=== PATIENT | female | born 1990 | race Caucasian/White ===

== ENCOUNTER 2017-03-21 20:38 | Emergency (ER) | payer BC, OTHER ==
[~2017-03-21] VITALS: Ht 160 cm; Wt 74.8 kg
[2017-03-21] MEDS ORDERED: SIMVASTATIN (21:57)
[2017-03-21] MEDS ORDERED: NORG1TAB14 PO (21:57)
--- NOTE | 2017-03-21 23:00 | ED EENT ---
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 ALSO C/O SOB, OCCASIONAL COUGH ET ALVARADO. NO OTHER C/O VOICED Source: patient, family, spouse Exam Limitations: no limitations History of Present Illness Time seen by provider: 22:50 Initial Comments Patient presents to ER by private conveyance with a chief complaint that for the past 1-2 days she's had progressively worsening symptoms of dizziness which is accompanied with a mild nausea but no vomiting which she feels the room is spinning even when she closed her eyes. She says she has some headaches and also some pressure in her chest as well as shortness of breath and occasional cough that is nonproductive of sputum. She says she's had temperature as high as 99.0. She's had no diarrhea or constipation, abdominal pain or rash. She had her flu shot 10 days ago. No other sick contacts or travel outside the [facility]. Allergies and Home Medications Allergies Coded Allergies: No Known Drug Allergies (Unverified , 03/21/17) Home Medications Norgestimate-Ethinyl Estradiol 1 Each Tablet, 1 EACH PO, (Reported) [Simvastatin] , (Reported) Review of Systems Constitutional: chills, No fever, malaise Eyes: Denies Blindness, Denies Blurred Vision, Denies Pain, Denies Photophobia Ears: Dizziness, Denies Pain, Denies Tinnitus, Denies Bloody Discharge, Denies Clear Discharge Nose: denies clots, denies congestion Mouth: denies clots, denies loose teeth Throat: denies pain, denies swelling Respiratory: see HPI, cough, short of breath Cardiovascular: No chest pain, palpitations Gastrointestinal: No abdominal pain, No constipation Musculoskeletal: No back pain, No joint pain Skin: No pruritus, No rash Neurological: Denies Headache, Denies Numbness, Denies Paresthesia Hematologic/Lymphatic: Denies Blood Clots, Denies Easy Bleeding Past Ulfnurm-[place]rhyn-Dergjt Hx Patient Social History Alcohol Use: Denies Use Recreational Drug Use: No Smoking Status: Never a Smoker 2nd Hand Smoke Exposure: No Recent Foreign Travel: No Contact w/Someone Who Travel: No Recent Infectious Disease Expo: No Recent Hopitalizations: No Physical Abuse: No Sexual Abuse: No Mistreated: No Fear: No Surgeries History of Surgeries: No Respiratory History of Respiratory Disorde: No Cardiovascular History of Cardiac Disorders: No Neurological History of Neurological Disord: No Genitourinary History of Genitourinary Disor: No Gastrointestinal History of Gastrointestinal Di: No Musculoskeletal History of Musculoskeletal Dis: No Endocrine History of Endocrine Disorders: No HEENT History of HEENT Disorders: No Cancer History of Cancer: No Psychosocial History of Psychiatric Problem: No Suicide Risk Score: 0 Integumentary History of Skin or Integumenta: No Blood Transfusions History of Blood Disorders: No Physical Exam Vital Signs Vital Sign - Last 12Hours 03/21/17 21:44 Temp 98.5 Pulse 94 Resp 20 B/P (MAP) 128/80 Pulse Ox 100 O2 Delivery Room Air General Appearance: WD/WN, no apparent distress Eyes: bilateral eye normal inspection, bilateral eye PERRL, bilateral eye EOMI Ears: right ear TM dull (mucoid effusion and bulging), right ear TM bulging, left ear TM normal, bilateral ear auricle normal, bilateral ear canal normal Nose: normal inspection, discharge Mouth/Throat: normal mouth inspection, pharynx normal, No mandibular swelling, No maxillary swelling, No pharynx swelling, No tonsillar exudate, tonsillar swelling Neck: non-tender, supple, normal inspection, other (no lymphadenopathy) Cardiovascular: normal peripheral pulses, regular rate, rhythm, no edema Respiratory: chest non-tender, lungs clear, normal breath sounds Gastrointestinal: normal bowel sounds, non tender, soft Neurologic/Psychiatric: alert, oriented x 3 Skin: normal color, warm/dry Progress/Results/Core Measures Results/Orders Lab Results Laboratory Tests Test 03/21/17 22:36 Range/Units Glucometer 118 H 70-110 MG/DL My Orders Orders - MAAME BECKWITH Chest Pa/Lat (2 View) (03/21/17 22:55) Urine Bedside (03/21/17 22:55) Vital Signs/I&O Vital Sign - Last 12Hours 03/21/17 21:44 Temp 98.5 Pulse 94 Resp 20 B/P (MAP) 128/80 Pulse Ox 100 O2 Delivery Room Air Blood Pressure Mean: 96 Point of Care Testing Finger Stick Blood Glucose: 118 Blood Glucose Action Taken: AND RN NOTIFIED Diagnostic Imaging Diagonstic Imaging: Xray Plain Films/CT/US/NM/MRI: chest Comments No acute cardiopulmonary processes noted. Reviewed: Reviewed by Me Departure Impression Impression: Primary Impression: Upper respiratory tract infection Qualified Codes: J06.9 - Acute upper respiratory infection, unspecified; B97.89 - Other viral agents as the cause of diseases classified elsewhere Additional Impression: Otitis media with effusion Qualified Codes: H65.91 - Unspecified nonsuppurative otitis media, right ear Disposition: HOME, SELF-CARE Condition: Stable Departure-Patient Inst. Decision time for Depature: 23:58 Referrals: NO,LOCAL PHYSICIAN (PCP/Family) Primary Care Physician Patient Instructions: Serous Otitis Media (DC) Add. Discharge Instructions: Medical bottle of Flonase, fluticasone and use 2 sprays in each nostril for the next 2 weeks. He should see some improvement in the next 2-3 days. All discharge instructions reviewed with patient and/or family. Voiced understanding. MAAME BECKWITH Mar 21, 2017 23:00
[2017-03-22 00:02] VITALS: BP 0/0
--- OUTSIDE RECORDS SUMMARY | 2017-03-22 06:40 | XMS REPORT | Continuity of Care Document ---
Author Author [facility] Organization [facility] Address Unknown Phone Unavailable Allergies Medications Problems Procedures Results Encounters ACCT No. Visit Date/Time Discharge Status Pt. Type Provider Facility Loc./Unit Complaint [id number] 10/31/2016 15:33:28 10/31/2016 23: 59:59 [facility] Outpatient Bertin Kendal Myesha [id number] 07/20/2016 19:19:32 07/20/2016 23: 59:59 [facility] Outpatient Sixto Cohen [id number] 03/01/2016 16:19:10 03/01/2016 23: 59:59 [facility] Out[facility] Sixto Cohen [id number] 12/10/2015 18:07:42 12/10/2015 23: 59:59 [facility] Outpatient Sixto Cohen
--- OUTSIDE RECORDS SUMMARY | 2017-03-22 06:40 | XMS REPORT ---
Author Author Sixto Cohen [facility] Address [address] [place], [place] [id number] Care Team Providers Care Sexual Health Physician Name Role Phone Sixto Cohen PCP Allergies and Adverse Reactions Name Reaction Notes NO KNOWN DRUG ALLERGIES Plan of Treatment Not available. Medications Active Name Start Date Estimated Completion Date SIG Comments Sprintec (28) 0.25-35 mg-mcg oral tablet take 1 tablet by oral route once daily Name Start Date Expiration Date SIG Comments amoxicillin 500 mg oral capsule 07/20/2016 07/30/2016 take 2 capsules by oral route every 12 hours for 10 days Problem List Description Status Onset *No known medical problems Active Vital Signs Date Time BP-Sys(mm[Hg] BP-Lacey(mm[Hg]) HR(bpm) RR(rpm) Temp WT HT HC BMI BSA BMI Percentile O2 Sat(%) 07/20/2016 5:46:00 PM 124 mmHg 86 mmHg 108 bpm 99.2 F 178 lbs 63 in 31.53 kg/m2 1.89 m2 99 % 03/01/2016 3:27:00 PM 125 mmHg 80 mmHg 86 bpm 16 rpm 97.4 F 179 lbs 63 in 31.7081 kg/m 1.8997 m 99 % 12/10/2015 5:12:00 PM 124 mmHg 64 mmHg 74 bpm 18 rpm 98.3 F 177.25 lbs 63 in 31.40 kg/m2 1.89 m2 99 % Social History Name Description Comments denies alcohol use Tobacco Never smoker 12/10/2015 - History of Procedures Date Ordered Description Order Status 12/10/2015 12:00 AM Depo-Medrol, Per [address] [facility]#[id number] Reviewed 12/10/2015 12:00 AM Decadron, Per [address] [facility]# [id number] Reviewed 03/15/2016 12:00 AM Employment Physical Reviewed Results Summary Data and Description Results 02/27/2016 12:10 PM Varicella Zoster IgG 955.0 IndexRubella Antibodies, IgG 6.34 IndexRubeola Ab, IgG 39.8 AU/mlMumps Abs, IgG 134.0 AU/ml History Of Immunizations Not available. History of Past Illness Name Date of Onset Comments *No known medical problems Allergic contact dermatitis due to plants, except food Dec 10 2015 5:14PM Pre-employment exam, encounter for Mar 01 2016 3:29PM Acute suppurative otitis media of right ear without spontaneous rupture of tympanic membrane, recurrence not specified Jul 20 2016 5:49PM Payers Insurance Name Company Name Plan Name Plan Number Policy Number Policy Group Number Start Date [facility] [id number] N/A [facility] Financial Assistance [facility] Financial [place] 50 PERCENT Saturday, June 06, 2015 [facility] Occupational Medicine [id number] [facility] Tuesday, March 01, 2016 History of Encounters Visit Date Visit Type Provider 07/20/2016 Office visit Sixto Cohen APRN 03/01/2016 Office visit Sixto Cohen APRN 12/10/2015 Office visit Sixto Cohen APRN
--- OUTSIDE RECORDS SUMMARY | 2017-03-22 06:40 | XMS REPORT ---
Author Author Kendal Denton Organization [facility] Address [address] [place], [place] [id number] Care Team Providers Care Engineering Specialist Name Role Phone Kendal Denton PCP Unavailable Allergies and Adverse Reactions Name Reaction Notes NO KNOWN DRUG ALLERGIES Plan of Treatment Not available. Medications Active Name Start Date Estimated Completion Date SIG Comments Sprintec (28) 0.25-35 mg-mcg oral tablet take 1 tablet by oral route once daily Name Start Date Expiration Date SIG Comments amoxicillin 500 mg oral capsule 10/31/2016 11/10/2016 take 2 capsules by oral route every 12 hours for 10 days Problem List Description Status Onset *No known medical problems Active Vital Signs Date Time BP-Sys(mm[Hg] BP-Lacey(mm[Hg]) HR(bpm) RR(rpm) Temp WT HT HC BMI BSA BMI Percentile O2 Sat(%) 10/31/2016 2:37:00 PM 110 mmHg 78 mmHg 84 bpm 18 rpm 97.5 F 165.5 lbs 63 in 29.32 kg/m2 1.83 m2 98 % 07/20/2016 5:46:00 PM 124 mmHg 86 mmHg 108 bpm 99.2 F 178 lbs 63 in 31.531 kg/m 1.8944 m 99 % 03/01/2016 3:27:00 PM 125 mmHg 80 mmHg 86 bpm 16 rpm 97.4 F 179 lbs 63 in 31.71 kg/m2 1.90 m2 99 % 12/10/2015 5:12:00 PM 124 mmHg 64 mmHg 74 bpm 18 rpm 98.3 F 177.25 lbs 63 in 31.3981 kg/m 1.8904 m 99 % Social History Name Description Comments denies alcohol use Tobacco Never smoker 12/10/2015 - History of Procedures Date Ordered Description Order Status 12/10/2015 12:00 AM Depo-Medrol, Per 80 Mg [facility]#[id number] Reviewed 12/10/2015 12:00 AM Decadron, Per 1 Mg [facility]# [id number] Reviewed 03/15/2016 12:00 AM Employment Physical Reviewed Results Summary Date and Description Results 02/27/2016 12:10 PM Varicella [...] recurrence not specified Jul 20 2016 5:49PM Tonsillitis Oct 31 2016 2:40PM Lymphadenitis Oct 31 2016 2:40PM Payers Insurance Name Company Name Plan Name Plan Number Policy Number Policy Group Number Start Date [facility] [id number] N/A [facility] Financial Assistance [facility] Financial [place] 50 PERCENT Saturday, June 06, 2015 [facility] Occupational Medicine [id number] [facility] Tuesday, March 01, 2016 History of Encounters Visit Date Visit Type Provider 10/31/2016 Office visit Kendal Denton APRN 07/20/2016 Office visit Sixto Cohen APRN 03/01/2016 Office visit Sixto Cohen APRN 12/10/2015 Office visit Sixto Cohen APRN
--- OUTSIDE RECORDS SUMMARY | 2017-03-22 06:40 | XMS REPORT ---
Author Author Sixto Cohen [facility] Address [address] [place], [place] [id number] Care Team Providers Care Supervisor Of Officials Name Role Phone Sixto Cohen PCP Allergies and Adverse Reactions Name Reaction Notes NO KNOWN DRUG ALLERGIES Plan of Treatment Not available. Medications Active Name Start Date Estimated Completion Date SIG Comments Sprintec (28) 0.25-35 mg-mcg oral tablet take 1 tablet by oral route once daily Problem List Description Status Onset *No known medical problems Active Vital Signs Date Time BP-Sys(mm[Hg] BP-Lacey(mm[Hg]) HR(bpm) RR(rpm) Temp WT HT HC BMI BSA BMI Percentile O2 Sat(%) 12/10/2015 5:12:00 PM 124 mmHg 64 mmHg 74 bpm 18 rpm 98.3 F 177.25 lbs 63 in 31.40 kg/m2 1.89 m2 99 % Social History Name Description Comments denies alcohol use Tobacco Never smoker 12/10/2015 - History of Procedures Date Ordered Description Order Status 12/10/2015 12:00 AM Depo-Medrol, Per 80 Mg [facility]#[id number] Reviewed 12/10/2015 12:00 AM Decadron, Per 1 Mg [facility]# [id number] Reviewed Results Summary Not available. History Of Immunizations Not available. 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
--- OUTSIDE RECORDS SUMMARY | 2017-03-22 06:40 | XMS REPORT ---
Author Author Sixto Cohen [facility] Address [address] [place], [place] [id number] Care Team Providers Care Corporate Travel Consultant Name Role Phone Sixto Cohen PCP Allergies [...] HC BMI BSA BMI Percentile O2 Sat(%) 03/01/2016 3:27:00 PM 125 mmHg 80 mmHg [...] 12/10/2015 12:00 AM Depo-Medrol, Per 80 Mg [facility]#[id number] Reviewed 12/10/2015 12:00 AM Decadron, Per 1 Mg [facility]# [id number] Reviewed 03/15/2016 12:00 AM Employment Physical Reviewed Results Summary Data and Description Results 02/27/2016 12:10 PM Varicella Zoster IgG 955.0 IndexRubella Antibodies, IgG 6.34 IndexRubeola Ab, IgG 39.8 AU/mlMumps Abs, IgG 134.0 AU/ml History Of Immunizations Not available. History of Past Illness Name Date of Onset Comments *No known medical problems Allergic contact dermatitis due to plants, except food Madi 2016 5:14PM Pre-employment exam, encounter for Mar 01 2016 3:29PM Payers Insurance Name Company Name Plan Name Plan Number Policy Number Policy Group Number Start Date [facility] [id number] N/A [facility] Financial Assistance [facility] Financial [place] 50 PERCENT Saturday, June 06, 2015 [facility] Occupational Medicine [id number] [facility] Tuesday, March 01, 2016 History of Encounters Visit Date Visit Type Provider 03/01/2016 Office visit Sixto Cohen APRN 12/10/2015 Office visit Sixto Cohen APRN
--- NOTE | 2017-03-22 06:59 | Diagnostic Imaging Report ---
INDICATION: Dizziness. FINDINGS: PA and lateral chest shows the lungs to be well-aerated and clear. Heart is not enlarged. There is no pulmonary edema. No hilar adenopathy. No pneumothorax or pleural effusion. IMPRESSION: Normal PA and lateral chest. Dictated by: Dictated on workstation # [id number]
== END 2017-03-22 00:02 | disposition home or self-care (01) ==
LOC: ER 20:41
DX: J06.9 Acute upper respiratory infection, unspecified (principal); H65.91 Unspecified nonsuppurative otitis media, right ear
CPT/HCPCS: 71020; 82962; 84703; 99282